=== PATIENT | female | born 1940 | race Caucasian/White ===

== ENCOUNTER 2021-09-16 16:50 | Inpatient (IN) ==
[2021-09-16] MEDS ORDERED: morphine 2 MG/ML VIAL IV ONE (17:39)
--- NOTE | 2021-09-16 17:54 | XRay Report ---
INDICATION: Pre surgery TECHNIQUE: AP supine chest x-ray COMPARISON: Previous chest x-ray dated 11/27/2020 FINDINGS: Lungs:Lungs are negative. No focal pulmonary parenchymal infiltrate or mass Heart, vascular:No significant cardiomegaly. Pulmonary vascularity is normal. No pulmonary edema or pulmonary congestion Mediastinum, ysabel:No mediastinal widening. No hilar mass Pleura:No pleural fluid. No pleural-based mass or calcification Skeletal:Healing or healed left-sided rib fractures. No acute rib fractures. Patient is status post midthoracic vertebral body augmentation IMPRESSION: Negative supine abdomen Interpreted and Authenticated by: Steven Torres 09/16/21
--- NOTE | 2021-09-16 17:55 | XRay Report ---
INDICATION: fall, hip pain TECHNIQUE: AP pelvis. AP and crosstable lateral left hip COMPARISON: Previous examination dated 06/04/2020 FINDINGS: Transcervical left femoral neck fracture. There is foreshortening and varus angulation deformity. Pelvis and right hip are negative. Sacrum is negative. IMPRESSION: Displaced and angulated left femoral neck fracture Interpreted and Authenticated by: Steven Torres 09/16/21
--- NOTE | 2021-09-16 17:55 | Emergency Department Note ---
HPI General Chief complaint: Trauma Stated complaint: Fall Time Seen by Provider: 09/16/21 17:07 Source: EMS Mode of arrival: EMS History of Present Illness HPI Narrative: Patient presents after mechanical trip and fall resulting in left hip pain difficulty bearing weight happened just prior to arrival. Pain rated 4/10 at rest 8/10 with any attempted movement. Did not hit head or lose consciousness. Denies any neck or back pain acutely. No treatment attempted prior to arrival patient denies current CP, sob, fever, chills, abdominal pain, n/v/d/c, focal acute weakness, loss/change of sensation, or any other complaints at this time. PMH/PSHx/Meds/Allergies/SH/FH as per nursing documentation and reviewed. A full 10 point review of systems reviewed and negative except as noted in HPI. Related Data Home Medications Medication Instructions Recorded Confirmed calcium carbonate-vitamin D3 400 tab PO QDAY tab 05/13/15 04/04/21 mg -133.3 unit tablet Previous Rx's Medication Instructions Recorded alendronate 70 mg tablet (Fosamax) 70 mg PO QWEEK #12 tab 11/21/17 hydrochlorothiazide 25 mg tablet 12.5 mg PO QDAY #45 tab 05/25/18 simvastatin 40 mg tablet 40 mg PO QPM #90 tab 05/25/18 cyclobenzaprine 5 mg tablet 5 mg PO BID PRN #10 tab 06/27/20 cyclobenzaprine 10 mg tablet 5 mg PO TID PRN #15 tab 11/27/20 docusate sodium 100 mg capsule 100 mg PO QDAY #20 cap 11/27/20 (Colace) hydrocodone 7.5 mg-acetaminophen 1 tab PO Q6H PRN #42 tab 12/01/20 325 mg tablet Allergies Allergy/AdvReac Type Severity Reaction Status Date / Time Amoxicillin [From Augmentin] AdvReac Unknown Diarrhea Verified 04/04/21 11:07 clavulanic acid AdvReac Unknown Diarrhea Verified 04/04/21 11:07 [From Augmentin] modafinil [From Provigil] AdvReac Unknown Dizziness Verified 04/04/21 11:07 Review of Systems ROS ROS Narrative: Per HPI PFSH Narrative Patient History Narrative: Narrative: Medical/Surgical/Family History All Active Problems (Updated 09/16/21 @ 17:55 by Nathaniel Rockwell DO) Closed fracture of neck of left femur (Acute) Acute pain of left hip (Acute) Urinary tract infection (Acute) Pain in thoracic spine (Acute) Idiopathic osteoporosis with pathological fracture (Acute) Age-related osteoporosis with current pathol fracture of vertebra (Acute) Compression fx, thoracic spine (Acute) Fracture of rib (Acute) Lumbar spondylosis with myelopathy (Chronic) Lumbar facet arthropathy (Chronic) Lumbar radiculopathy (Chronic) Chronic pain (Chronic) Degeneration of lumbar intervertebral disc (Chronic) Pain of both hip joints (Chronic) Hip pain (Chronic) Back pain (Chronic) Other intervertebral disc degeneration, lumbar region (Chronic) 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) Encounter for Health Maintenance Examination in Adult (Chronic) Eczema (Chronic) Epistaxis, recurrent (Chronic) Peripheral neuropathy (Chronic) Trochanteric bursitis of left hip (Chronic) Multiple sclerosis (Chronic) Hypertension (Chronic) Hyperlipidemia (Chronic) Hematuria (Chronic) Hearing loss, sensorineural (Chronic) Cervical spondylosis without myelopathy (Chronic) Medical History (Updated 09/16/21 @ 17:55 by Nathaniel Rockwell DO) Back pain Cerumen impaction Cervical spondylosis without myelopathy Chronic pain Degeneration of lumbar intervertebral disc Epistaxis Hearing loss, sensorineural Hematuria Hip pain Hyperlipidemia Hypertension Lumbar facet arthropathy Lumbar radiculopathy Lumbar spondylosis with myelopathy Multiple sclerosis Other intervertebral disc degeneration, lumbar region Pain of both hip joints Urinary tract infection Surgical History H/O dilation and curettage Family History Father Dementia Sister Breast cancer, Onset Age: 59 Other Cerebrovascular accident (CVA) Seizure Social History Smoking Status: Never smoker Alcohol Intake Frequency: does not drink Substance Use: does not use Exam Narrative Narrative: PHYSICIAL EXAM: Vitals reviewed GENERAL: The patient appears nourished and normally developed. Vital signs as documented. EYES: Head exam is unremarkable. No scleral icterus HEENT: Mucous membranes moist. Nares patent without copious rhinorrhea. LUNGS: Lungs are clear to auscultation, -r/r/w without any respiratory distress. CARDIAC: Rhythm is regular. No dysrhythmias or murmurs. ABDOMEN: Soft, non-tender, non-distended, no rebound/guarding, with no obvious masses EXTREMITIES: Pelvis stable to compression, + pain with logroll testing on the left left lower extremity shortened externally rotated distal sensation intact, dorsalis pedis posterior tibialis pulses equal intact bilaterally, otherwise no peripheral edema, with no obvious deformities. SKIN: Good color, with no significant rashes. No pallor. NEURO: No obvious neurological deficits, normal sensation and strength bilaterally. PSYCH: Mood and affect normal. Appropriate for age. Course Vital Signs Vital signs: Vital Signs Temperature 98.1 F 09/16/21 16:52 Pulse Rate 100 H 09/16/21 16:52 Pulse Oximetry (%) 91 09/16/21 16:52 Temperature 98.1 F 09/16/21 16:52 Pulse Rate 100 H 09/16/21 16:52 Pulse Oximetry (%) 91 09/16/21 16:52 [facility] MDM Narrative Medical decision making narrative: All results/imaging obtained reviewed and interpreted, results trended/compared with previous levels if available to evaluate for abnormality contributing to todays presentation, After reviewing patients comorbidities, severity of history of presenting illness, labs and imaging if obtained in conjunction with physical exam and course in emergency department, deemed to have potential for deterioration/progression of symptoms that could lead to multiple morbidities or mortality, decision made that patient requires further observation/evaluation/treatment and patient admitted to appropriate service, patient/family understand and agree with plan. Chart created with voice recognition software, errors may be present due to softwares interpretation Lab Data Result diagrams: 09/16/21 17:43 09/16/21 17:43 Discharge Plan Patient/Caregiver Discharge Instructions Pt seen by RAIL CAR REPAIRMAN/PA only: No Clinical Impression: Closed fracture of neck of left femur, Acute pain of left hip Patient Disposition: Xfer As Inpt ([facility]) Follow up with: Ismael Pardo MD [Primary Care Provider] - Prescriptions: No Action alendronate [Fosamax] 70 mg tablet 70 mg PO QWEEK Qty: 12 3RF Rx Instructions: administer upon arising for the day with plain water >=30 min. hydrochlorothiazide 25 mg tablet 12.5 mg PO QDAY Qty: 45 3RF simvastatin 40 mg tablet 40 mg PO QPM Qty: 90 3RF calcium carbonate-vitamin D3 400-133.3 mg-unit tablet PO QDAY 0RF hydrocodone-acetaminophen 7.5-325 mg tablet 1 tab PO Q6H PRN (Reason: pain) Qty: 42 0RF cyclobenzaprine 5 mg tablet 5 mg PO BID PRN (Reason: muscle spasm) Qty: 10 0RF cyclobenzaprine 10 mg tablet 5 mg PO TID PRN (Reason: muscle spasm) Qty: 15 0RF docusate sodium [Colace] 100 mg capsule 100 mg PO QDAY Qty: 20 0RF
[2021-09-16] MEDS ORDERED: ONDANSETRON 4 MG/2 ML VIAL IV PRN (17:56)
[2021-09-16 18:22] LABS: Basophils # (Auto) 0.03 K/mcL (0.00-0.30); Basophils % (Auto) 0.2 % (0.0-2.0); Eosinophils # (Auto) 0 K/mcL (0.00-0.70); Eosinophils % (Auto) 0 % (0.0-7.0); Hematocrit 41.7 % (34.1-44.9); Hemoglobin 13.9 g/dL (11.2-15.7); Mean Cell Volume 93.3 fL (80.0-100.0); Mean Corpuscular HGB Conc 33.3 g/dL (31.0-36.0); Monocytes # (Auto) 0.99 K/mcL (0.10-0.90); Monocytes % (Auto) 6.8 % (1.0-12.0); Platelet Count 269 K/mcL (140-440); RBC 4.47 M/mcL (3.59-5.38); Red Cell Distribution Width 12.1 % (11.5-14.5); WBC 14.5 K/mcL (4.5-11.0)
[2021-09-16 18:43] LABS: ALT/SGPT 17 U/L (<40); AST/SGOT 19 U/L (<32); Albumin 4.2 gm/dL (3.2-5.2); Albumin/Globulin Ratio 1.7 (1.0-2.3); Alkaline Phosphatase 48 U/L (39-117); Bilirubin,Total 0.3 mg/dL (0.1-1.0); Blood Urea Nitrogen 24 mg/dL (8-23); Calcium 9.1 mg/dL (8.6-10.4); Carbon Dioxide 24 mmol/L (22-30); Chloride 92 mmol/L (96-108); Globulin 2.5 gm/dL (2.2-3.7); Glomerular Filtration Rate 60; Glucose 148 mg/dL (70-105)
[2021-09-16] MEDS ORDERED: morphine 4 MG/ML VIAL IV ONE (19:13)
[2021-09-16] MEDS ORDERED: oxyCODONE/APAP 5/325MG TABLET PO PRN (20:51)
[2021-09-16] MEDS ORDERED: ACETAMINOPHEN 325 MG TABLET PO PRN (20:51)
[2021-09-16] MEDS ORDERED: ORTHO PREOP PAIN ORDER PER RX PO SCH (21:00)
[2021-09-16] MEDS ORDERED: DOCUSATE SODIUM 100 MG CAPSULE PO SCH (21:00)
[2021-09-16] MEDS: HYDROmorphone 1 MG/ML SYRINGE IV PRN (21:52)
[2021-09-16] MEDS: 0.9 % SODIUM CHLORIDE 10 ML SYRINGE IV SCH (21:52)
[2021-09-16] MEDS: DOCUSATE SODIUM 100 MG CAPSULE PO SCH (21:53)
[2021-09-16] MEDS: SENNOSIDES 1 TABLET PO SCH (21:53)
[2021-09-17] MEDS ORDERED: ceFAZolin 1 GM VIAL ONE (04:59)
[2021-09-17] MEDS: ACETAMINOPHEN 500 MG TABLET PO SCH ×2 (05:08→13:54)
[2021-09-17] MEDS: 0.9 % SODIUM CHLORIDE 10 ML SYRINGE IV SCH ×4 (05:08→22:04)
[2021-09-17] MEDS ORDERED: oxyCODONE 10 MG TAB.ER.12H PO SCH (06:00)
[2021-09-17] MEDS ORDERED: CELECOXIB 200 MG CAPSULE PO SCH (06:00)
[2021-09-17] MEDS ORDERED: ceFAZolin 2 GM in DEXTROSE 5% IN WATER 50 ML IV SCH ×2 (06:00→16:15)
[2021-09-17] MEDS ORDERED: PREGABALIN 75 MG CAPSULE PO SCH (06:00)
[2021-09-17] MEDS: DOCUSATE SODIUM 100 MG CAPSULE PO SCH ×2 (08:09→21:35)
--- NOTE | 2021-09-17 09:50 | Consultation ---
DATE OF CONSULTATION: 09/16/2021 HISTORY OF PRESENT ILLNESS: This is a 80-year-old woman who fell on her left hip,had immediate pain, swelling and deformity with a same level fall. She was seen in the Emergency Room and was appropriately diagnosed with a femoral neck fracture. She is confused and does not recall much of the events. Her power of managing attorney has been notified and consented for the surgery. We talked to the patient as well about the possibility of options for her. These included screw fixation and hemiarthroplasty. They have elected to go with my advice of the hemiarthroplasty given the location and her bone quality, and the risks and benefits, and she agrees to proceed. PAST MEDICAL HISTORY: The patient has had multiple other health problems to include pain in the thoracic spine, frequent urinary infection, idiopathic osteoporosis with rib fractures, degenerative arthritis of the lumbar spine, hypertension, hyperlipidemia, hematuria, cervical spondylosis. REVIEW OF SYSTEMS: She has no shortness of breath. MEDICATIONS: A muscle relaxant. Cyclobenzaprine 5 mg t.i.d. Docusate sodium. Hydrocodone 7.5 mg 1-2 tablets daily. Simvastatin 40 mg 1 p.o. at bedtime. ALLERGIES: AMOXICILLIN. CODE STATUS: No history was available. VITAL SIGNS: Her blood pressure today is 149/80, pulse 82, temperature 98.1, oxygen is saturating at 91% on room air. PHYSICAL EXAMINATION: GENERAL: 5 feet, 113 pounds with a BMI of 22. LUNGS: Clear to auscultation bilaterally. CV: Occasionally irregular beat with no murmurs. ABDOMEN: Soft, thin, nontender. LOWER EXTREMITIES: Right hip is flexed. The left hip is externally rotated, flexed and shortened. She has pain with any motion of the left leg and she is able to move her toes. Skin is intact. No open wounds. DIAGNOSTIC STUDIES: X-rays of the left hip demonstrate a femoral neck fracture, AP and lateral. This demonstrates a displaced femoral neck fracture with osteoporosis. PLAN: The treatment will be a cemented hemiarthroplasty. The patient and power of managing attorney have been consented. RBH:parris Job ID: [id number] Doc ID: [id number] Jerry Wiggins MD
[2021-09-17] MEDS ORDERED: SCOPOLAMINE 1 PATCH PATCH TOPICAL PRN (15:30)
[2021-09-17] MEDS ORDERED: IPRATROPIUM/ALBUTEROL 3 ML AMPUL.NEB NEB PRN ×2 (15:30→16:46)
[2021-09-17] MEDS ORDERED: BISACODYL 10 MG SUPP.RECT PR PRN (16:08)
[2021-09-17] MEDS ORDERED: TRANEXAMIC ACID 1,000 MG/10 ML VIAL IV ONE (16:08)
[2021-09-17] MEDS ORDERED: BENZOCAINE/MENTHOL 1 LOZENGE PO PRN (16:08)
[2021-09-17] MEDS ORDERED: ACETAMINOPHEN 325 MG TABLET PO PRN (16:08)
[2021-09-17] MEDS ORDERED: KETAMINE 50 MG/ML Syringe (ANEST) IV ONE (16:20)
[2021-09-17] MEDS ORDERED: ONDANSETRON 4 MG/2 ML VIAL ONE (16:20)
[2021-09-17] MEDS ORDERED: MAGNESIUM SULFATE 2 GM/50 ML BAG IV ONE (16:20)
[2021-09-17] MEDS ORDERED: PROPOFOL 200 MG/20 ML VIAL IV ONE (16:20)
[2021-09-17] MEDS ORDERED: TRANEXAMIC ACID 1,000 MG/10 ML VIAL ONE (16:20)
[2021-09-17] MEDS ORDERED: LIDOCAINE HCL/PF 100 MG/5 ML SYRINGE IV ONE (16:20)
[2021-09-17] MEDS ORDERED: diphenhydrAMINE 50 MG/ML VIAL IV PRN (16:46)
[2021-09-17] MEDS ORDERED: NALOXONE HCL 0.4 MG/ML VIAL IV PRN (16:46)
[2021-09-17] MEDS ORDERED: ONDANSETRON 4 MG/2 ML VIAL IV PRN (16:46)
[2021-09-17] MEDS ORDERED: fentaNYL 100 MCG/2 ML VIAL IV PRN (16:46)
[2021-09-17] MEDS ORDERED: MEPERIDINE 25 MG/ML VIAL IV PRN (16:46)
[2021-09-17] MEDS ORDERED: ACETAMINOPHEN 1,000 MG/100 ML BAG IV ONE (16:46)
[2021-09-17] MEDS ORDERED: LACTATED RINGERS 250 ML IV PRN (16:46)
[2021-09-17] MEDS ORDERED: PROMETHAZINE 25 MG/ML VIAL IV PRN (16:46)
[2021-09-17] MEDS ORDERED: LACTATED RINGERS 1,000 ML IV SCH (17:00)
--- NOTE | 2021-09-17 17:13 | Discharge Plan ---
Discharge Instructions - [facility] Patient Instructions Total Hip Protocol: Follow activity instructions as provided by Physical Therapy. Dressing Care: May shower in 2 days and Aquacel Ag - leave on for 5 days Discharge Plan Patient/Caregiver Discharge Instructions Activity: ambulate only with your walker and as per physical therapy Diet: Regular Diet Prescriptions: New hydrocodone-acetaminophen 5-325 mg Tablet 1 - 2 tab PO Q4H PRN (Reason: Pain) Qty: 30 0RF aspirin [Ecotrin Low Strength] 81 mg tablet,delayed release (DR/EC) 81 mg PO BID Qty: 60 0RF docusate sodium 100 mg capsule 100 mg PO BID Qty: 60 0RF No Action alendronate [Fosamax] 70 mg tablet 70 mg PO QWEEK Qty: 12 3RF Rx Instructions: administer upon arising for the day with plain water >=30 min. hydrochlorothiazide 25 mg tablet 12.5 mg PO QDAY Qty: 45 3RF simvastatin 40 mg tablet 40 mg PO QPM Qty: 90 3RF calcium carbonate-vitamin D3 400-133.3 mg-unit tablet PO QDAY 0RF hydrocodone-acetaminophen 7.5-325 mg tablet 1 tab PO Q6H PRN (Reason: pain) Qty: 42 0RF docusate sodium [Colace] 100 mg capsule 100 mg PO QDAY Qty: 20 0RF cyclobenzaprine 5 mg tablet 5 mg PO TID 0RF Other Ambulatory Orders: Physical Therapy DC - [facility] (Routine) Location: None Selected Ordered By: Win Pringle Toilet Riser Discharge Order (ONCE) Location: None Selected Ordered By: Win Pringle Walker (ONCE) Location: None Selected Ordered By: Win Pringle Follow Up Plan Follow up with: Ismael Pardo MD [Primary Care Provider] - Patient Disposition: Xfer SNF Prognosis: Fair Rehab Potential: Fair Overall status at discharge: patient is not back to baseline Discharge Orders: Discharge Order (Routine); Ordered 09/18/21 Ordered By: Win Pringle
--- NOTE | 2021-09-17 17:15 | Brief Operative Note ---
Brief Operative Note Date of procedure: 09/17/21 Pre-op diagnosis: left hip fx Post-op diagnosis: same Procedure: left hip cemented hemiarthroplasty Grafts/Implants: Yes Anesthesia: GETA Complications: none Surgeon: Jerry Wiggins Missile Pad Mechanic: Win Pringle Estimated blood loss (cc): 84 Specimens Removed/Pathology: none sent Condition: stable Disposition: PACU
--- NOTE | 2021-09-17 17:47 | XRay Report ---
INDICATION: Post-Op Total Hip TECHNIQUE: AP pelvis. AP and crosstable lateral left hip COMPARISON: Preoperative evaluation dated 09/16/2021 FINDINGS: Status post left hemiarthroplasty. There is postsurgical soft tissue and intra-articular gas. No acute pelvic or sacral fracture IMPRESSION: Left hip and hemiarthroplasty Interpreted and Authenticated by: Steven Torres 09/17/21
[2021-09-17] MEDS: LACTATED RINGERS 1,000 ML IV SCH (18:56)
[2021-09-17] MEDS: CYCLOBENZAPRINE 10 MG TABLET PO SCH (21:34)
[2021-09-17] MEDS: ASPIRIN 81 MG TAB.CHEW CHEWED SCH (21:34)
[2021-09-17] MEDS: SENNOSIDES 1 TABLET PO SCH (21:34)
[2021-09-17] MEDS: SIMVASTATIN 40 MG TABLET PO SCH (21:35)
[2021-09-17] MEDS: ceFAZolin 1 GM VIAL IV SCH (23:37)
[2021-09-18] MEDS: LACTATED RINGERS 1,000 ML IV SCH ×3 (04:32→23:29)
[2021-09-18] MEDS: 0.9 % SODIUM CHLORIDE 10 ML SYRINGE IV SCH ×6 (04:33→23:29)
--- NOTE | 2021-09-18 08:22 | EKG ---
[facility] Test Date: 2021-09-16 Pat Name: Pilar Ruano Department: ED Room: Gender: Female Director Medical: SB : 1940 Requested By: Nathaniel Rockwell Order Number: [id number] Reading MD: Matthew Trujillo Measurements Intervals [place] Rate: 88 P: 69 [place]: 151 QRS: -52 QRSD: 99 T: 49 QT: 395 QTc: 478 Interpretive Statements Sinus rhythm LAD, consider left anterior fascicular block Electronically Signed On 09-18-2021 8:22:11 PDT by Matthew Trujillo /store/M0/[id number]/[id number]
[2021-09-18] MEDS ORDERED: DOCUSATE SODIUM 100 MG CAPSULE PO SCH (09:00)
[2021-09-18] MEDS: ASPIRIN 81 MG TAB.CHEW CHEWED SCH ×2 (09:10→22:27)
[2021-09-18] MEDS: DOCUSATE SODIUM 100 MG CAPSULE PO SCH ×2 (09:10→22:28)
[2021-09-18] MEDS: HYDROCHLOROTHIAZIDE 25 MG TABLET PO SCH (09:11)
[2021-09-18] MEDS: CYCLOBENZAPRINE 10 MG TABLET PO SCH ×3 (09:11→22:27)
[2021-09-18] MEDS: ceFAZolin 1 GM VIAL IV SCH (09:22)
[2021-09-18] MEDS: HYDROCODONE/APAP 7.5/325MG TABLET PO PRN (18:32)
[2021-09-18] MEDS: HYDROmorphone 1 MG/ML SYRINGE IV PRN (22:26)
[2021-09-18] MEDS: SIMVASTATIN 40 MG TABLET PO SCH (22:28)
[2021-09-18] MEDS: SENNOSIDES 1 TABLET PO SCH (22:28)
[2021-09-19] MEDS: LACTATED RINGERS 1,000 ML IV SCH ×3 (01:19→17:20)
[2021-09-19] MEDS: HYDROCODONE/APAP 7.5/325MG TABLET PO PRN ×2 (03:25→15:07)
[2021-09-19] MEDS: 0.9 % SODIUM CHLORIDE 10 ML SYRINGE IV SCH ×6 (06:12→20:12)
--- NOTE | 2021-09-19 10:21 | Orthopedic Progress Note ---
SUBJECTIVE Subjective Patient information: Note initiated : 09/19/21 at 10:19 am Service Date, if different from initiated Date: [] Patient: Pilar Ruano 80 y/o F admitted on 09/16/21 for Fall. Chief Complaint: [hip fx] Principal diagnosis: left hip fx and dementia Constitutional Vitals: Vital Signs Temp Pulse Resp BP Pulse Ox 97.6 F 74 16 149/67 94 09/19/21 07:36 09/19/21 07:36 09/19/21 07:36 09/19/21 07:36 09/19/21 10:00 Period Temp Pulse Resp BP Sys/Ramírez Pulse Ox Last 24 Hr 97.2 F-98.9 F 70-90 16-18 121-153/50-93 91-95 Intake and Output 09/18/21 09/19/21 09/19/21 21:59 05:59 13:59 Intake Total 1000 1400 120 Output Total 300 600 Balance 700 800 120 Weight 118 lb Intake & Output: Intake & Output 09/18/21 09/19/21 09/19/21 21:59 05:59 13:59 Intake Total 1000 1400 120 Output Total 300 600 Balance 700 800 120 Weight 118 lb Intake: IV 1000 1000 Lactated Ringers 1,000 ml @ 100 1000 1000 mls/hr IV .Q10H [facility] Rx#: [id number] Oral 400 120 Output: Urine Catheter Amount 300 600 Other: Meal applesauce Breakfast Percent of Meal Consumed 100% 100% Feeding Ability Independent Urine Appearance Clear Uretheral ([place]) Clear Urine Color Dark Yellow Uretheral ([place]) Pale General appearance: disheveled, no acute distress and thin OBJ DATA Labs CBC & Chem 7: 09/18/21 05:33 09/16/21 17:43 Labs: Abnormal Lab Results 09/16/21 09/16/21 17:43 17:43 WBC 14.5 H Neut % (Auto) 84.0 H Lymph % (Auto) 9.0 L Lymph # (Auto) 1.30 L Angelina # (Auto) 0.99 H Absolute Neutrophils 12.18 H Sodium 132 L Chloride 92 L BUN 24 H Glucose 148 H Meds: Medications Acetaminophen (Acetaminophen 325 Mg Tablet) 650 mg PO Q6HP PRN; Protocol PRN Reason: Per Pain Protocol/Fever > 101 Acetaminophen (Acetaminophen 325 Mg Tablet) 650 mg PO Q6HP PRN; Protocol PRN Reason: Per Pain Protocol/Fever > 101 Hydrocodone Bitart/Acetaminophen (Hydrocodone/Apap 7.5/325mg Tablet) 1 tab PO Q6HP PRN PRN Reason: Pain Last Admin: 09/19/21 03:25 Dose: 1 tab Documented by: Alendronate Sodium (Alendronate Sodium 70 Mg Tablet) 70 mg PO QWEEK [facility] Aspirin (Aspirin 81 Mg Tab.Chew) 81 mg CHEWED BID [facility] Last Admin: 09/18/21 22:27 Dose: 81 mg Documented by: Bisacodyl (Bisacodyl 10 Mg Supp.Rect) 10 mg SD Q2-3DAYS PRN PRN Reason: Constipation Cyclobenzaprine HCl (Cyclobenzaprine 10 Mg Tablet) 5 mg PO TID [facility] Last Admin: 09/18/21 22:27 Dose: 5 mg Documented by: Docusate Sodium (Docusate Sodium 100 Mg Capsule) 100 mg PO BID [facility] Last Admin: 09/18/21 22:28 Dose: Not Given Documented by: Hydrochlorothiazide (Hydrochlorothiazide 25 Mg Tablet) 12.5 mg PO QDAY [facility] Last Admin: 09/18/21 09:11 Dose: 12.5 mg Documented by: Hydromorphone HCl (Hydromorphone 1 Mg/Ml Syringe) 0 mg IV Q2HP PRN; Protocol PRN Reason: Per Pain Protocol Last Admin: 09/18/21 22:26 Dose: 1 mg Documented by: Lactated Ringer's (Lactated Ringers) 1,000 mls @ 100 mls/hr IV .Q10H [facility] Last Admin: 09/19/21 01:19 Dose: 100 mls/hr Documented by: Ondansetron HCl (Ondansetron 4 Mg/2 Ml Vial) 4 mg IV Q6HP PRN PRN Reason: Nausea And Vomiting Last Admin: 09/16/21 21:52 Dose: 4 mg Documented by: Oxycodone/Acetaminophen (Oxycodone/Apap 5/325mg Tablet) 1 tab PO Q4HP PRN; Protocol PRN Reason: Per Pain Protocol Polyethylene Glycol (Polyethylene Glycol 3350 17 Gm Packet) 17 gm PO DAILYP PRN PRN Reason: Constipation Senna (Sennosides 1 Tablet) 2 tab PO [facility] Last Admin: 09/18/21 22:28 Dose: 2 tab Documented by: Simvastatin (Simvastatin 40 Mg Tablet) 40 mg PO QPM [facility] Last Admin: 09/18/21 22:28 Dose: 40 mg Documented by: Sodium Chloride (0.9 % Sodium Chloride 10 Ml Syringe) 10 ml IV Q8 [facility] Last Admin: 09/19/21 06:12 Dose: Not Given Documented by: Sodium Chloride (0.9 % Sodium Chloride 10 Ml Syringe) 10 ml IV Q8 [facility] Last Admin: 09/19/21 06:12 Dose: Not Given Documented by: Throat Lozenges (Benzocaine/Menthol 1 Lozenge) 1 lozenge PO PRN PRN PRN Reason: Sore Throat A/P Assessment and plan (1) Acute pain of left hip: Status: Acute (2) Idiopathic osteoporosis with pathological fracture: Assessment and plan: dc Plan: dc snf Status: Acute Comment: snf (3) Fracture of rib: Status: Acute (4) Chronic pain: Status: Chronic (5) Pain of both hip joints: Status: Chronic (6) Back pain: Status: Chronic Qualifiers: Back pain location: low back pain Chronicity: chronic Back pain laterality: right Sciatica presence: with sciatica Sciatica laterality: sciatica of right side Qualified Code(s): M54.41 - Lumbago with sciatica, right side; G89.29 - Other chronic pain (7) Balance problem due to vestibular dysfunction: Status: Chronic Qualifiers: Laterality: unspecified laterality Qualified Code(s): H83.2X9 - Labyrinthine dysfunction, unspecified ear Time Spent With Patient Time: Total time spent is greater than 50% in coordination of care (as documented) at patient's floor/unit and/or counseling patient:
[2021-09-19] MEDS: HYDROCHLOROTHIAZIDE 25 MG TABLET PO SCH (11:03)
[2021-09-19] MEDS: ASPIRIN 81 MG TAB.CHEW CHEWED SCH ×2 (11:03→20:12)
[2021-09-19] MEDS: DOCUSATE SODIUM 100 MG CAPSULE PO SCH ×2 (11:04→20:11)
[2021-09-19] MEDS: CYCLOBENZAPRINE 10 MG TABLET PO SCH ×3 (11:04→20:11)
[2021-09-19] MEDS: SENNOSIDES 1 TABLET PO SCH (20:12)
[2021-09-19] MEDS: SIMVASTATIN 40 MG TABLET PO SCH (20:12)
[2021-09-20] MEDS: LACTATED RINGERS 1,000 ML IV SCH ×3 (04:08→23:00)
[2021-09-20] MEDS: 0.9 % SODIUM CHLORIDE 10 ML SYRINGE IV SCH ×6 (04:09→22:00)
[2021-09-20] MEDS: DOCUSATE SODIUM 100 MG CAPSULE PO SCH ×2 (10:08→20:27)
[2021-09-20] MEDS: ASPIRIN 81 MG TAB.CHEW CHEWED SCH ×2 (10:08→20:27)
[2021-09-20] MEDS: CYCLOBENZAPRINE 10 MG TABLET PO SCH ×3 (10:08→20:27)
[2021-09-20] MEDS: HYDROCHLOROTHIAZIDE 25 MG TABLET PO SCH (10:10)
[2021-09-20] MEDS: HYDROCODONE/APAP 7.5/325MG TABLET PO PRN (10:17)
[2021-09-20] MEDS ORDERED: IPRATROPIUM/ALBUTEROL 3 ML AMPUL.NEB NEB PRN (12:00)
[2021-09-20] MEDS ORDERED: 0.9 % SODIUM CHLORIDE 1,000 ML IV SCH (12:00)
[2021-09-20] MEDS ORDERED: 0.9 % SODIUM CHLORIDE 1,000 ML IV ONE (12:05)
--- NOTE | 2021-09-20 12:31 | Internal Medicine Consult Note ---
HPI Data of Consult Consult date: 09/20/21 Primary Care Provider: Ismael Pardo Consult Narrative History of present illness: Pilar Ruano is a 80 year old female with a history of hypertension, dementia, osteoporosis, who suffered a fall and was found to have a left femoral neck fracture. The patient was admitted on 09/16/21 and taken for ORIF with left hip cemented hemiarthroplasty on 09/17/21. Per chart review the patient was stable until 09/20/21 when she was found to be hypoxic. A rapid response was called and hospital medicine was consulted per hospital protocol. When evaluated the patient she was tachycardic and hypotensive. She appeared confused, not the patient has dementia. Review of systems: unable to obtain due to dementia Physical exam Head: Atraumatic, normal inspection. Eyes: normal appearance, no scleral icterus. Neck: full ROM Respiratory: nasal canula oxygen Cardiovascular: regular tachycardia, S1, S2. GI/Abdominal: soft, nontender, no guarding. Extremities: left femur surgical incision covered with clean bandage Neurological: CN II-XII intact, intact motor, intact sensation. Psychiatric: impaired cognition Skin: warm, normal color cc:: CC: Jerry Wiggins [facility]SH All Active Problems (Updated 09/19/21 @ 10:21 by Jerry Wiggins MD) Closed fracture of neck of left femur (Acute) Acute pain of left hip (Acute) Urinary tract infection (Acute) Pain in thoracic spine (Acute) Idiopathic osteoporosis with pathological fracture (Acute) Age-related osteoporosis with current pathol fracture of vertebra (Acute) Compression fx, thoracic spine (Acute) Fracture of rib (Acute) Lumbar spondylosis with myelopathy (Chronic) Lumbar facet arthropathy (Chronic) Lumbar radiculopathy (Chronic) Chronic pain (Chronic) Degeneration of lumbar intervertebral disc (Chronic) Pain of both hip joints (Chronic) Hip pain (Chronic) Back pain (Chronic) Other intervertebral disc degeneration, lumbar region (Chronic) 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) Encounter for Health Maintenance Examination in Adult (Chronic) Eczema (Chronic) Epistaxis, recurrent (Chronic) Peripheral neuropathy (Chronic) Trochanteric bursitis of left hip (Chronic) Multiple sclerosis (Chronic) Hypertension (Chronic) Hyperlipidemia (Chronic) Hematuria (Chronic) Hearing loss, sensorineural (Chronic) Cervical spondylosis without myelopathy (Chronic) Medical History (Updated 09/19/21 @ 10:21 by Jerry Wiggins MD) Back pain Cerumen impaction Cervical spondylosis without myelopathy Chronic pain Degeneration of lumbar intervertebral disc Epistaxis Hearing loss, sensorineural Hematuria Hip pain Hyperlipidemia Hypertension Lumbar facet arthropathy Lumbar radiculopathy Lumbar spondylosis with myelopathy Multiple sclerosis Other intervertebral disc degeneration, lumbar region Pain of both hip joints Urinary tract infection Surgical History H/O dilation and curettage Family History Father Dementia Sister Breast cancer, Onset Age: 59 Other Cerebrovascular accident (CVA) Seizure Social History household members: alone marital status: education level: high school occupational status: retired alcohol intake frequency: does not drink substance use type: does not use MEDS/ALLERGIES Home Medications and Allergies Home Medications Medication Instructions Recorded Confirmed Type calcium carbonate-vitamin D3 400 tab PO QDAY tab 05/13/15 04/04/21 History mg -133.3 unit tablet alendronate 70 mg tablet (Fosamax) 70 mg PO QWEEK #12 tab 11/21/17 09/17/21 Rx hydrochlorothiazide 25 mg tablet 12.5 mg PO QDAY #45 tab 05/25/18 09/17/21 Rx simvastatin 40 mg tablet 40 mg PO QPM #90 tab 05/25/18 09/17/21 Rx docusate sodium 100 mg capsule 100 mg PO QDAY #20 cap 11/27/20 09/17/21 Rx (Colace) hydrocodone 7.5 mg-acetaminophen 1 tab PO Q6H PRN #42 tab 12/01/20 09/17/21 Rx 325 mg tablet aspirin 81 mg tablet,delayed 81 mg PO BID #60 tab 09/17/21 Rx release (Ecotrin Low Strength) cyclobenzaprine 5 mg tablet 5 mg PO TID 09/17/21 09/17/21 History docusate sodium 100 mg capsule 100 mg PO BID #60 cap 09/17/21 Rx hydrocodone 5 mg-acetaminophen 325 1 - 2 tab PO Q4H PRN #30 tab 09/17/21 Rx mg tablet Allergies Allergy/AdvReac Type Severity Reaction Status Date / Time Amoxicillin [From Augmentin] AdvReac Unknown Diarrhea Verified 04/04/21 11:07 clavulanic acid AdvReac Unknown Diarrhea Verified 04/04/21 11:07 [From Augmentin] modafinil [From Provigil] AdvReac Unknown Dizziness Verified 04/04/21 11:07 EXAM Constitutional Vitals: Temp Pulse Resp BP Pulse Ox 98.0 F 69 16 183/65 92 09/20/21 08:00 09/20/21 08:00 09/20/21 08:00 09/20/21 08:00 09/20/21 08:00 DATA Data Completed and Pending Labs: Labs from last 24 hours 09/20/21 09/20/21 12:18 12:18 WBC Pending RBC Pending Hgb Pending Hct Pending MCV Pending MCH Pending MCHC Pending RDW Pending Plt Count Pending MPV Pending Neut % (Auto) Pending Sodium Pending Potassium Pending Chloride Pending Carbon Dioxide Pending Anion Gap Pending BUN Pending Creatinine Pending GFR Calculation Pending Glucose Pending Calcium Pending Total Bilirubin Pending AST Pending ALT Pending Alkaline Phosphatase Pending Total Protein Pending Albumin Pending Globulin Pending Albumin/Globulin Ratio Pending Hold Red Top Pending A/P Narrative A/P Narrative: Assessment: 80 year old female with a history of hypertension, dementia, osteoporosis, who was admitted for a left femur fracture after a fall, she had an ORIF on 09/17/21. A rapid response was called on 09/20/21 when the patient was found to be hypoxic. Hospital medicine was consulted for the rapid response. #Acute hypoxic respiratory failure #Left femur fracture s/p ORIF 09/17/21 #Essential hypertension #Osteoporosis #Dementia Plan -Transfer to PCU. -CTA chest, high PE pretest probability. -IV fluid bolus. -Oxygen supplementation. -CBC and inpatient panel. -Hold Hydrochlorothiazide. -Ofirmev Q8 hrs. -Discontinue opioids for now. -Delirium bundle. -NPO for now. -DVT ppx: on ASA BID per ortho -Code status: Full code at admission. Unable to contact Catrina ELIAS, to discuss code status. Left a message. Time Spent With Patient Time: Total time spent is greater than 50% in coordination of care (as documented) at patient's floor/unit and/or counseling patient:
[2021-09-20] MEDS ORDERED: IOPAMIDOL 100 ML BOTTLE IV ONE (12:39)
[2021-09-20 12:50] LABS: Basophils # (Auto) 0.04 K/mcL (0.00-0.30); Basophils % (Auto) 0.4 % (0.0-2.0); Eosinophils # (Auto) 0.14 K/mcL (0.00-0.70); Eosinophils % (Auto) 1.3 % (0.0-7.0); Hematocrit 35.8 % (34.1-44.9); Hemoglobin 12.2 g/dL (11.2-15.7); Lymphocytes # (Auto) 1.71 K/mcL (1.50-4.80); Lymphocytes % (Auto) 15.3 % (15.5-49.0); Mean Cell Volume 91.1 fL (80.0-100.0); Mean Corpuscular HGB Conc 34.1 g/dL (31.0-36.0); Mean Platelet Volume 9.4 fL (7.4-10.4); Monocytes # (Auto) 1.31 K/mcL (0.10-0.90); Monocytes % (Auto) 11.7 % (1.0-12.0); Neutrophils % (Auto) 71.3 % (38.0-78.0); Platelet Count 216 K/mcL (140-440); RBC 3.93 M/mcL (3.59-5.38); Red Cell Distribution Width 11.9 % (11.5-14.5); WBC 11.2 K/mcL (4.5-11.0)
--- NOTE | 2021-09-20 13:08 | Cat Scan Report ---
INDICATION: PE evaluation COMPARISON: Previous chest CT scan dated 11/27/2020. Previous chest x-ray dated 09/16/2021 TECHNIQUE: Axial images obtained through the chest. 80ml Isovue 370 injected intravenously, and scanning was performed during pulmonary arterial phase. Sagittally and coronally reformatted images were obtained. MIP reformatted images. FINDINGS: Lungs:No focal pulmonary parenchymal density. No calcified or noncalcified nodule Mediastinum, vascular:Main pulmonary artery, right pulmonary artery, left pulmonary artery are negative. No intraluminal filling defects. No lobar, segmental, or subsegmental emboli. Thoracic aorta is negative. No aneurysmal dilatation. Main pulmonary artery is not enlarged No pathologic mediastinal or hilar adenopathy Heart:No cardiomegaly. No pericardial effusion. No significant reflux of contrast material into the inferior vena cava or hepatic veins. No evidence for right heart strain Pleura:Very small left effusion Axilla, supraclavicular regions, chest wall:No pathologic axillary or supraclavicular adenopathy. Musculoskeletal:There are chronic healed left rib fractures. Previous vertebroplasty or kyphoplasty at T7. There is a mild T10 compression deformity, unchanged since 11/27/2020 Upper Abdomen:Negative IMPRESSION: 1. Negative pulmonary CTA 2. Very small left pleural effusion 3. Multiple healed left rib fractures 4. Previous T7 kyphoplasty or vertebroplasty. Mild superior endplate compression at T10, chronic The exam was performed using radiation dose optimization techniques including, but not limited to, automated exposure control, adjustment of the mA and/or kV according to patient size and use of iterative reconstruction technique. Interpreted and Authenticated by: Steven Torres 09/20/21
[2021-09-20 13:15] LABS: ALT/SGPT 12 U/L (<40); AST/SGOT 31 U/L (<32); Albumin 3.3 gm/dL (3.2-5.2); Albumin/Globulin Ratio 1.2 (1.0-2.3); Alkaline Phosphatase 50 U/L (39-117); Bilirubin,Total 0.3 mg/dL (0.1-1.0); Blood Urea Nitrogen 11 mg/dL (8-23); Calcium 8.7 mg/dL (8.6-10.4); Carbon Dioxide 24 mmol/L (22-30); Chloride 97 mmol/L (96-108); Globulin 2.8 gm/dL (2.2-3.7); Glomerular Filtration Rate 92; Glucose 128 mg/dL (70-105)
--- NOTE | 2021-09-20 13:48 | Internal Med Progress Note ---
SUBJECTIVE Subjective Patient information: Note initiated : 09/20/21 at 1:43 pm Service Date, if different from initiated Date: [] Patient: Pilar Ruano a 80 y/o F admitted on 09/16/21 for Fall. Chief Complaint: [] Principal diagnosis: left hip fx and dementia Interval history: History of present illness: Pilar Ruano is a 80 year old female with a history of hypertension, dementia, osteoporosis, who suffered a fall and was found to have a left femoral neck fracture. The patient was admitted on 09/16/21 and taken for ORIF with left hip cemented hemiarthroplasty on 09/17/21. Per chart review the patient was stable until 09/20/21 when she was found to be hypoxic. A rapid response was called and hospital medicine was consulted per hospital protocol. When evaluated the patient she was tachycardic and hypotensive. She appeared confused, not the patient has dementia. 09/21 Review of systems: unable to obtain due to dementia Constitutional Vitals: Vital Signs Temp Pulse Resp BP Pulse Ox 98.0 F 91 H 16 126/68 95 09/20/21 08:00 09/20/21 12:47 09/20/21 08:00 09/20/21 12:47 09/20/21 12:47 Period Temp Pulse Resp BP Sys/Ramírez Pulse Ox Last 24 Hr 97.3 F-98.8 F 69-91 16-16 126-183/65-78 91-96 Intake and Output 09/19/21 09/20/21 09/20/21 21:59 05:59 13:59 Intake Total 100 200 Output Total 800 550 Balance -700 -350 Weight 53.609 kg Intake & Output: Intake & Output 09/19/21 09/20/21 09/20/21 21:59 05:59 13:59 Intake Total 100 200 Output Total 800 550 Balance -700 -350 Weight 53.609 kg Intake: Oral 100 200 Output: Urine Catheter Amount 550 Void Amount 800 Other: Meal Dinner Breakfast Percent of Meal Consumed 75% 100% Feeding Ability Assist with Tray Set Up Urine Appearance Clear Uretheral ([place]) Clear Clear Urine Color Dark Yellow Dark Yellow Uretheral ([place]) Bright Yellow Bright Yellow Urine Odor Normal Exam: General: Alert, Awake, No acute Distress Eyes/N/T: EOMI, Head/Neck: neck supple, CV: RRR, No murmurs, Pulm: Clear b/l, no wheezing/rhonchi/rales Abd: soft, nontender, +BS x4 Ext: no clubbing/cyanosis/edema. left femur surgical incision covered with clean bandage Neuro: Alert, no focal deficits, moves all extremities, Psychiatric: impaired cognition Skin: warm/dry OBJ DATA Labs CBC & Chem 7: 09/20/21 12:18 09/20/21 12:18 Labs: Abnormal Lab Results 09/20/21 09/20/21 12:18 12:18 WBC 11.2 H Lymph % (Auto) 15.3 L [place] # (Auto) 1.31 H Creatinine 0.5 L Glucose 128 H Meds: Medications Hydrocodone Bitart/Acetaminophen (Hydrocodone/Apap 7.5/325mg Tablet) 1 tab PO Q6HP PRN PRN Reason: Pain Last Admin: 09/20/21 10:17 Dose: 1 tab Documented by: Albuterol/Ipratropium (Ipratropium/Albuterol 3 Ml Ampul.Neb) 3 ml NEB ONCE PRN PRN Reason: Shortness Of Breath Alendronate Sodium (Alendronate Sodium 70 Mg Tablet) 70 mg PO QWEEK [facility] Aspirin (Aspirin 81 Mg Tab.Chew) 81 mg CHEWED BID [facility] Last Admin: 09/20/21 10:08 Dose: 81 mg Documented by: Bisacodyl (Bisacodyl 10 Mg Supp.Rect) 10 mg [place] Q2-3DAYS PRN PRN Reason: Constipation Cyclobenzaprine HCl (Cyclobenzaprine 10 Mg Tablet) 5 mg PO TID [facility] Last Admin: 09/20/21 10:08 Dose: 5 mg Documented by: Docusate Sodium (Docusate Sodium 100 Mg Capsule) 100 mg PO BID [facility] Last Admin: 09/20/21 10:08 Dose: 100 mg Documented by: Lactated Ringer's (Lactated Ringers) 1,000 mls @ 100 mls/hr IV .Q10H [facility] Last Admin: 09/20/21 04:08 Dose: Not Given Documented by: Sodium Chloride (Sodium Chloride 0.9%) 1,000 mls @ 0 mls/hr IV .Q0M [facility] Acetaminophen (Ofirmev) 1,000 mg in 100 mls @ 200 mls/hr IV Q8H [facility]; Protocol Ondansetron HCl (Ondansetron 4 Mg/2 Ml Vial) 4 mg IV Q6HP PRN PRN Reason: Nausea And Vomiting Last Admin: 09/16/21 21:52 Dose: 4 mg Documented by: Polyethylene Glycol (Polyethylene Glycol 3350 17 Gm Packet) 17 gm PO DAILYP PRN PRN Reason: Constipation Senna (Sennosides 1 Tablet) 2 tab PO HS [facility] Last Admin: 09/19/21 20:12 Dose: 2 tab Documented by: Simvastatin (Simvastatin 40 Mg Tablet) 40 mg PO QPM [facility] Last Admin: 09/19/21 20:12 Dose: 40 mg Documented by: Sodium Chloride (0.9 % Sodium Chloride 10 Ml Syringe) 10 ml IV Q8 [facility] Last Admin: 09/20/21 04:09 Dose: Not Given Documented by: Sodium Chloride (0.9 % Sodium Chloride 10 Ml Syringe) 10 ml IV Q8 [facility] Last Admin: 09/20/21 04:09 Dose: Not Given Documented by: Throat Lozenges (Benzocaine/Menthol 1 Lozenge) 1 lozenge PO PRN PRN PRN Reason: Sore Throat A/P Narrative A/P Narrative: A: #Acute hypoxic respiratory failure: -now resolved -CTA chest negative #Left femur fracture: s/p ORIF (09/17) #HTN: #Osteoporosis: #Dementia: Plan -IS -prn Oxygen -CBC and inpatient panel -Hold Hydrochlorothiazide -Ofirmev Q8 hrs, Discontinue opioids for now -Delirium bundle -DVT ppx: on ASA BID per ortho Time Spent With Patient Time: Total time spent is greater than 50% in coordination of care (as documented) at patient's floor/unit and/or counseling patient:
[2021-09-20] MEDS: ACETAMINOPHEN 1,000 MG/100 ML BAG IV SCH ×2 (14:32→21:54)
[2021-09-20] MEDS: SENNOSIDES 1 TABLET PO SCH (20:27)
[2021-09-20] MEDS: SIMVASTATIN 40 MG TABLET PO SCH (20:27)
[2021-09-21] MEDS: HYDROCODONE/APAP 7.5/325MG TABLET PO PRN (01:00)
[2021-09-21] MEDS: ACETAMINOPHEN 1,000 MG/100 ML BAG IV SCH ×3 (05:50→21:41)
[2021-09-21] MEDS: 0.9 % SODIUM CHLORIDE 10 ML SYRINGE IV SCH ×6 (05:53→21:45)
[2021-09-21 06:52] LABS: Basophils # (Auto) 0.05 K/mcL (0.00-0.30); Basophils % (Auto) 0.6 % (0.0-2.0); Eosinophils # (Auto) 0.25 K/mcL (0.00-0.70); Eosinophils % (Auto) 2.9 % (0.0-7.0); Hematocrit 35.3 % (34.1-44.9); Hemoglobin 11.5 g/dL (11.2-15.7); Lymphocytes # (Auto) 2.03 K/mcL (1.50-4.80); Lymphocytes % (Auto) 23.7 % (15.5-49.0); Mean Cell Volume 94.4 fL (80.0-100.0); Mean Corpuscular HGB Conc 32.6 g/dL (31.0-36.0); Mean Platelet Volume 9.2 fL (7.4-10.4); Monocytes # (Auto) 0.92 K/mcL (0.10-0.90); Monocytes % (Auto) 10.8 % (1.0-12.0); Platelet Count 188 K/mcL (140-440); RBC 3.74 M/mcL (3.59-5.38); Red Cell Distribution Width 12.1 % (11.5-14.5); WBC 8.6 K/mcL (4.5-11.0)
[2021-09-21 07:33] LABS: ALT/SGPT 9 U/L (<40); AST/SGOT 22 U/L (<32); Albumin 2.8 gm/dL (3.2-5.2); Alkaline Phosphatase 46 U/L (39-117); Bilirubin,Direct < 0.2 mg/dL (0-0.3); Bilirubin,Total 0.2 mg/dL (0.1-1.0); Blood Urea Nitrogen 10 mg/dL (8-23); Calcium 8.5 mg/dL (8.6-10.4); Carbon Dioxide 26 mmol/L (22-30); Chloride 101 mmol/L (96-108); Globulin 2.7 gm/dL (2.2-3.7); Glomerular Filtration Rate 92; Glucose 100 mg/dL (70-105); Lactate Dehydrogenase 290 U/L (135-225); Phosphorous 3.9 mg/dL (2.5-4.5); Triglycerides 112 mg/dL (<150); Uric Acid 2.9 mg/dL (2.5-8.0)
--- NOTE | 2021-09-21 07:39 | Internal Med Progress Note ---
SUBJECTIVE Subjective Patient information: Note initiated : 09/21/21 at 7:30 am Service Date, if different from initiated Date: [] Patient: Pilar Ruano 80 y/o F admitted on 09/16/21 for Fall. Chief Complaint: [] Principal diagnosis: left hip fx and dementia Interval history: History of present illness: Pilar Ruano is a 80 year old female with a history of hypertension, dementia, osteoporosis, who suffered a fall and was found to have a left femoral neck fracture. The patient was admitted on 09/16/21 and taken for ORIF with left hip cemented hemiarthroplasty on 09/17/21. Per chart review the patient was stable until 09/20/21 when she was found to be hypoxic. A rapid response was called and hospital medicine was consulted per hospital protocol. When evaluated the patient she was tachycardic and hypotensive. She appeared confused, not the patient has dementia. 09/21 Seen this morning with close friend in the room. Is a close friend she does have some memory issues and slow to answer at times which is been progressing over the past months. She does have a history of dementia. She is on room air with good blood pressure heart rate this morning however she seemed to have a new neuro deficit on the right visual field. Patient does recall if she has had any vision problems in the past. She does have a longstanding history of multiple sclerosis. Review of Systems: denies headache/fever/chills/nausea/vomiting/chest or abdominal pain/cough/dyspnea/diarrhea. Otherwise see above. Constitutional Vitals: Vital Signs Temp Pulse Resp BP Pulse Ox 98.7 F 64 18 172/79 99 09/21/21 04:01 09/21/21 07:12 09/20/21 22:21 09/21/21 06:02 09/21/21 06:02 Period Temp Pulse Resp BP Sys/Ramírez Pulse Ox Last 24 Hr 97.0 F-98.7 F 64-115 16-24 123-183/55-130 85-99 Intake and Output 09/20/21 09/21/21 09/21/21 21:59 05:59 13:59 Intake Total 1415 100 100 Output Total 1300 750 Balance 115 -650 100 Weight 53.24 kg Intake & Output: Intake & Output 09/20/21 09/21/21 09/21/21 21:59 05:59 13:59 Intake Total 1415 100 100 Output Total 1300 750 Balance 115 -650 100 Weight 53.24 kg Intake: IV 100 100 100 Oral 1315 Output: Urine Catheter Amount 1300 750 Other: Meal Dinner Percent of Meal Consumed 50% Feeding Ability Assist with Tray Set Up Urine Appearance Clear Clear Urine Color Bright Yellow Light Melissa Urine Odor Normal Exam: General: Alert, Awake, No acute Distress Eyes/N/T: EOMI, but right visual field deficit Head/Neck: neck supple, CV: RRR, No murmurs, Pulm: Clear b/l, no wheezing/rhonchi/rales Abd: soft, nontender, +BS x4 Ext: no clubbing/cyanosis/edema. left femur surgical incision covered with clean bandage Neuro: Alert, right visual field deficit, moves all extremities, Psychiatric: impaired cognition Skin: warm/dry OBJ DATA Labs CBC & Chem 7: 09/21/21 05:58 09/21/21 05:58 Labs: Abnormal Lab Results 09/21/21 09/20/21 09/20/21 05:58 12:18 12:18 WBC 11.2 H Lymph % (Auto) 15.3 L [place] # (Auto) 0.92 H 1.31 H Creatinine 0.5 L Glucose 128 H Meds: Medications Hydrocodone Bitart/Acetaminophen (Hydrocodone/Apap 7.5/325mg Tablet) 1 tab PO Q6HP PRN PRN Reason: Pain Last Admin: 09/21/21 01:00 Dose: 1 tab Documented by: Albuterol/Ipratropium (Ipratropium/Albuterol 3 Ml Ampul.Neb) 3 ml NEB ONCE PRN PRN Reason: Shortness Of Breath Last Admin: 09/20/21 21:42 Dose: 3 ml Documented by: Alendronate Sodium (Alendronate Sodium 70 Mg Tablet) 70 mg PO QWEEK [facility] Aspirin (Aspirin 81 Mg Tab.Chew) 81 mg CHEWED BID [facility] Last Admin: 09/20/21 20:27 Dose: 81 mg Documented by: Bisacodyl (Bisacodyl 10 Mg Supp.Rect) 10 mg [place] Q2-3DAYS PRN PRN Reason: Constipation Cyclobenzaprine HCl (Cyclobenzaprine 10 Mg Tablet) 5 mg PO TID [facility] Last Admin: 09/20/21 20:27 Dose: 5 mg Documented by: Docusate Sodium (Docusate Sodium 100 Mg Capsule) 100 mg PO BID [facility] Last Admin: 09/20/21 20:27 Dose: 100 mg Documented by: Lactated Ringer's (Lactated Ringers) 1,000 mls @ 100 mls/hr IV .Q10H [facility] Last Admin: 09/20/21 23:00 Dose: Not Given Documented by: Sodium Chloride (Sodium Chloride 0.9%) 1,000 mls @ 0 mls/hr IV .Q0M [facility] Acetaminophen (Ofirmev) 1,000 mg in 100 mls @ 200 mls/hr IV Q8H [facility]; Protocol Last Infusion: 09/21/21 06:39 Dose: Infused Documented by: Ondansetron HCl (Ondansetron 4 Mg/2 Ml Vial) 4 mg IV Q6HP PRN PRN Reason: Nausea And Vomiting Last Admin: 09/16/21 21:52 Dose: 4 mg Documented by: Polyethylene Glycol (Polyethylene Glycol 3350 17 Gm Packet) 17 gm PO DAILYP PRN PRN Reason: Constipation Senna (Sennosides 1 Tablet) 2 tab PO HS [facility] Last Admin: 09/20/21 20:27 Dose: 2 tab Documented by: Simvastatin (Simvastatin 40 Mg Tablet) 40 mg PO QPM [facility] Last Admin: 09/20/21 20:27 Dose: 40 mg Documented by: Sodium Chloride (0.9 % Sodium Chloride 10 Ml Syringe) 10 ml IV Q8 [facility] Last Admin: 09/21/21 05:53 Dose: Not Given Documented by: Sodium Chloride (0.9 % Sodium Chloride 10 Ml Syringe) 10 ml IV Q8 [facility] Last Admin: 09/21/21 05:54 Dose: Not Given Documented by: Throat Lozenges (Benzocaine/Menthol 1 Lozenge) 1 lozenge PO PRN PRN PRN Reason: Sore Throat A/P Narrative A/P Narrative: A: #Stroke like symptoms (right visual field deficit) #Acute hypoxic respiratory failure: also had mild hypoxia several days before rapid response, suspect narcotics +/- chronic -CTA chest negative -on room air #hypotension & Tachycardia: possibly medication related -quickly resolved #Left femur fracture: s/p ORIF (09/17) #HTN: has been elevated #Osteoporosis: #Dementia: #h/o MS: Plan -MRI brain -permissive HTN if found to have CVA -IS -prn Oxygen -Hold Hydrochlorothiazide -Ofirmev Q8 hrs, Discontinue opioids for now, d/c flexeril for now -Delirium bundle -DVT ppx: on ASA BID per ortho Time Spent With Patient Time: Total time spent is greater than 50% in coordination of care (as documented) at patient's floor/unit and/or counseling patient: Total time spent with greater than 50% in coordination of care (as documented) at patient's floor/unit and/or counseling patient:: 35 - 50 minutes
[2021-09-21] MEDS: ASPIRIN 81 MG TAB.CHEW CHEWED SCH (08:28)
[2021-09-21] MEDS: DOCUSATE SODIUM 100 MG CAPSULE PO SCH ×2 (08:28→20:15)
[2021-09-21] MEDS: POLYETHYLENE GLYCOL 3350 17 GM PACKET PO PRN (08:28)
--- NOTE | 2021-09-21 08:57 | Cat Scan Report ---
INDICATION: concern for CVA COMPARISON: None. TECHNIQUE: Axial noncontrast-enhanced images through the brain. Sagittally and coronally reformatted images. FINDINGS: Cerebral hemispheres:Negative. No intra-axial abnormality. No intra-axial hematoma. No localized mass effect. There is cerebral atrophy with enlarged superficial subarachnoid spaces and ventricular megaly. There is white matter abnormality consistent with small vessel ischemic change. No acute intra-axial abnormality. Brainstem and cerebellum:No intra-axial abnormality Extra-axial:No acute hemorrhage. No subdural or epidural hematoma. No subarachnoid hemorrhage. Basilar cisterns are normal. CSF density abnormality in the anterior right middle cranial fossa is most consistent with a benign incidental arachnoid cyst. Calvarial:No calvarial fracture. No lytic lesion Temporal bones are negative. No destructive lesions Soft tissue, orbits, sinuses:Orbits and visualized facial soft tissues and paranasal sinuses are negative IMPRESSION: 1. Cerebral atrophy and white matter abnormality consistent with small vessel ischemic change 2. No acute intracranial hemorrhage. No acute abnormality The exam was performed using radiation dose optimization techniques including, but not limited to, automated exposure control, adjustment of the mA and/or kV according to patient size and use of iterative reconstruction technique. Interpreted and Authenticated by: Steven Torres 09/21/21
--- NOTE | 2021-09-21 11:53 | Magnetic Resonance Report ---
INDICATION: right visual field deficit TECHNIQUE: Sagittal T1-weighted images. Axial FLAIR images. Axial diffusion and ADC images. COMPARISON: Previous CT scan dated 09/21/2021 FINDINGS: There is restricted diffusion in the medial and inferior left occipital lobe. This is predominantly in the calcarine cortex and perisulcal left occipital lobe. There is no significant T2-weighted abnormality. Appearance is consistent with hyperacute left occipital infarction. No other cerebral abnormality. There is extensive white matter abnormality consistent with small vessel ischemic change. No other focal lesion. Brainstem and cerebellum are negative. Subdental note is made of a benign arachnoid cyst in the anterior right middle cranial fossa IMPRESSION: 1. Restricted diffusion in the left occipital lobe. This involves the calcarine cortex and perisulcal left occipital lobe. 2. No T2-weighted abnormality. Appearance is consistent with hyperacute infarction Interpreted and Authenticated by: Steven Torres 09/21/21
[2021-09-21] MEDS ORDERED: LABETALOL 5 MG/ML ML IV PRN (11:57)
[2021-09-21 12:26] LABS: HDL Cholesterol 37 mg/dL (>40); LDL Cholesterol,Calculated 50 mg/dL (<100); Non-HDL Cholesterol 72 mg/dL (<130); Triglycerides 111 mg/dL (<150)
--- NOTE | 2021-09-21 13:40 | EKG ---
[facility] Test Date: 2021-09-20 Pat Name: Pilar Ruano Department: 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
[2021-09-21] MEDS: CLOPIDOGREL 75 MG TABLET PO SCH (14:40)
[2021-09-21] MEDS: SENNOSIDES 1 TABLET PO SCH (20:15)
[2021-09-21] MEDS: SIMVASTATIN 40 MG TABLET PO SCH (20:18)
[2021-09-22] MEDS: ACETAMINOPHEN 1,000 MG/100 ML BAG IV SCH ×3 (05:24→21:17)
[2021-09-22] MEDS: 0.9 % SODIUM CHLORIDE 10 ML SYRINGE IV SCH ×6 (05:35→21:49)
--- NOTE | 2021-09-22 07:39 | Internal Med Progress Note ---
SUBJECTIVE Subjective Patient information: Note initiated : 09/22/21 at 7:37 am Service Date, if different from initiated Date: [] Patient: Pilar Ruano 80 y/o F admitted on 09/16/21 for Fall. Chief Complaint: [] Principal diagnosis: left hip fx and dementia Interval history: History of present illness: Pilar Ruano is a 80 year old female with a history of hypertension, dementia, osteoporosis, who suffered a fall and was found to have a left femoral neck fracture. The patient was admitted on 09/16/21 and taken for ORIF with left hip cemented hemiarthroplasty on 09/17/21. Per chart review the patient was stable until 09/20/21 when she was found to be hypoxic. A rapid response was called and hospital medicine was consulted per hospital protocol. When evaluated the patient she was tachycardic and hypotensive. She appeared confused, not the patient has dementia. 09/21 Seen this morning with close friend in the room. Is a close friend she does have some memory issues and slow to answer at times which is been progressing over the past months. She does have a history of dementia. She is on room air with good blood pressure heart rate this morning however she seemed to have a new neuro deficit on the right visual field. Patient does recall if she has had any vision problems in the past. She does have a longstanding history of multiple sclerosis. 09/22 No real change in the right visual field deficits. Permissive hypertension. Patient will need rehab as well. On dual antiplatelets and statin medication. Echo pending Review of Systems: denies headache/fever/chills/nausea/vomiting/chest or abdominal pain/c ough/dyspnea/diarrhea. Otherwise see above. Constitutional Vitals: Vital Signs Temp Pulse Resp BP Pulse Ox 97.0 F 73 20 216/97 93 09/22/21 04:00 09/22/21 02:01 09/22/21 06:01 09/22/21 06:01 09/22/21 06:01 Period Temp Pulse Resp BP Sys/Ramírez Pulse Ox Last 24 Hr 97.0 F-97.2 F 64-88 17-20 152-216/75-108 89-98 Intake and Output 09/21/21 09/22/21 09/22/21 21:59 05:59 13:59 Intake Total 100 100 100 Output Total 400 1150 Balance -300 -1050 100 Weight 53.184 kg Intake & Output: Intake & Output 09/21/21 09/22/21 09/22/21 21:59 05:59 13:59 Intake Total 100 100 100 Output Total 400 1150 Balance -300 -1050 100 Weight 53.184 kg Intake: IV 100 100 100 Output: Urine Catheter Amount 400 1150 Other: Urine Appearance Cloudy Urine Color Straw Exam: General: Alert, Awake, No acute Distress Eyes/N/T: EOMI, but right visual field deficit Head/Neck: neck supple, CV: RRR, No murmurs, Pulm: Clear b/l, no wheezing/rhonchi/rales Abd: soft, nontender, +BS x4 Ext: no clubbing/cyanosis/edema. left femur surgical incision covered with clean bandage Neuro: Alert, right visual field deficit, moves all extremities, Psychiatric: impaired cognition Skin: warm/dry OBJ DATA Labs CBC & Chem 7: 09/21/21 05:58 09/21/21 05:58 Labs: Abnormal Lab Results 09/21/21 09/21/21 09/21/21 05:58 05:58 05:58 WBC Lymph % (Auto) [place] # (Auto) 0.92 H Creatinine 0.5 L Glucose Calcium 8.5 L Lactate Dehydrogenase 290 H Total Protein 5.5 L Albumin 2.8 L HDL Cholesterol 37 L 09/20/21 09/20/21 12:18 12:18 WBC 11.2 H Lymph % (Auto) 15.3 L [place] # (Auto) 1.31 H Creatinine 0.5 L Glucose 128 H Calcium Lactate Dehydrogenase Total Protein Albumin HDL Cholesterol Meds: Medications Albuterol/Ipratropium (Ipratropium/Albuterol 3 Ml Ampul.Neb) 3 ml NEB ONCE PRN PRN Reason: Shortness Of Breath Last Admin: 09/20/21 21:42 Dose: 3 ml Documented by: Alendronate Sodium (Alendronate Sodium 70 Mg Tablet) 70 mg PO QWEEK [facility] Aspirin (Aspirin 81 Mg Tab.Chew) 81 mg CHEWED DAILY [facility] Bisacodyl (Bisacodyl 10 Mg Supp.Rect) 10 mg [place] Q2-3DAYS PRN PRN Reason: Constipation Clopidogrel Bisulfate (Clopidogrel 75 Mg Tablet) 75 mg PO DAILY [facility] Last Admin: 09/21/21 14:40 Dose: 75 mg Documented by: Docusate Sodium (Docusate Sodium 100 Mg Capsule) 100 mg PO BID [facility] Last Admin: 09/21/21 20:15 Dose: 100 mg Documented by: Sodium Chloride (Sodium Chloride 0.9%) 1,000 mls @ 0 mls/hr IV .Q0M [facility] Acetaminophen (Ofirmev) 1,000 mg in 100 mls @ 200 mls/hr IV Q8H [facility]; Protocol Last Infusion: 09/22/21 06:10 Dose: Infused Documented by: Labetalol HCl (Labetalol 5 Mg/Ml Ml) 0 mg IV Q2HP PRN PRN Reason: Hypertension Ondansetron HCl (Ondansetron 4 Mg/2 Ml Vial) 4 mg IV Q6HP PRN PRN Reason: Nausea And Vomiting Last Admin: 09/16/21 21:52 Dose: 4 mg Documented by: Polyethylene Glycol (Polyethylene Glycol 3350 17 Gm Packet) 17 gm PO DAILYP PRN PRN Reason: Constipation Last Admin: 09/21/21 08:28 Dose: 17 gm Documented by: Senna (Sennosides 1 Tablet) 2 tab PO HS [facility] Last Admin: 09/21/21 20:15 Dose: 2 tab Documented by: Simvastatin (Simvastatin 40 Mg Tablet) 40 mg PO QPM [facility] Last Admin: 09/21/21 20:18 Dose: 40 mg Documented by: Sodium Chloride (0.9 % Sodium Chloride 10 Ml Syringe) 10 ml IV Q8 [facility] Last Admin: 09/22/21 05:35 Dose: Not Given Documented by: Sodium Chloride (0.9 % Sodium Chloride 10 Ml Syringe) 10 ml IV Q8 [facility] Last Admin: 09/22/21 05:35 Dose: Not Given Documented by: Throat Lozenges (Benzocaine/Menthol 1 Lozenge) 1 lozenge PO PRN PRN PRN Reason: Sore Throat A/P Narrative A/P Narrative: A: #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 quickly resolved #Left femur fracture: s/p ORIF (09/17) #HTN: has been elevated #Osteoporosis: #Dementia: #h/o MS: Plan: -DAPT/Statin -permissive HTN -echo -IS -prn Oxygen -Hold Hydrochlorothiazide -Ofirmev Q8 hrs, Discontinue opioids for now, d/c flexeril for now -Delirium bundle -CM for placement -DVT ppx: on ASA per ortho Plan of Treatment: dc to snf Time Spent With Patient Time: Total time spent is greater than 50% in coordination of care (as documented) at patient's floor/unit and/or counseling patient:
--- NOTE | 2021-09-22 08:01 | Orthopedic Progress Note ---
SUBJECTIVE Subjective Patient information: Note initiated : 09/22/21 at 7:57 am Service Date, if different from initiated Date: [] Patient: Pilar Ruano 80 y/o F admitted on 09/16/21 for Fall. Chief Complaint: [breathing well and no cp but confused] Principal diagnosis: left hip fx and dementia Constitutional Vitals: Vital Signs Temp Pulse Resp BP Pulse Ox 97.0 F 73 20 216/97 93 09/22/21 04:00 09/22/21 02:01 09/22/21 06:01 09/22/21 06:01 09/22/21 06:01 Period Temp Pulse Resp BP Sys/Ramírez Pulse Ox Last 24 Hr 97.0 F-97.2 F 64-88 17-20 152-216/75-108 89-98 Intake and Output 09/21/21 09/22/21 09/22/21 21:59 05:59 13:59 Intake Total 100 100 100 Output Total 400 1150 Balance -300 -1050 100 Weight 117 lb 4 oz Intake & Output: Intake & Output 09/21/21 09/22/21 09/22/21 21:59 05:59 13:59 Intake Total 100 100 100 Output Total 400 1150 Balance -300 -1050 100 Weight 117 lb 4 oz Intake: IV 100 100 100 Output: Urine Catheter Amount 400 1150 Other: Urine Appearance Cloudy Urine Color Straw Respiratory Respiratory exam: Present normal respiratory exam Extremities Exam Extremities exam: Present normal capillary refill OBJ DATA Labs CBC & Chem 7: 09/21/21 05:58 09/21/21 05:58 Labs: Abnormal Lab Results 09/21/21 09/21/21 09/21/21 05:58 05:58 05:58 WBC Lymph % (Auto) [place] # (Auto) 0.92 H Creatinine 0.5 L Glucose Calcium 8.5 L Lactate Dehydrogenase 290 H Total Protein 5.5 L Albumin 2.8 L HDL Cholesterol 37 L 09/20/21 09/20/21 12:18 12:18 WBC 11.2 H Lymph % (Auto) 15.3 L [place] # (Auto) 1.31 H Creatinine 0.5 L Glucose 128 H Calcium Lactate Dehydrogenase Total Protein Albumin HDL Cholesterol Meds: Medications Albuterol/Ipratropium (Ipratropium/Albuterol 3 Ml Ampul.Neb) 3 ml NEB ONCE PRN PRN Reason: Shortness Of Breath Last Admin: 09/20/21 21:42 Dose: 3 ml Documented by: Alendronate Sodium (Alendronate Sodium 70 Mg Tablet) 70 mg PO QWEEK [facility] Aspirin (Aspirin 81 Mg Tab.Chew) 81 mg CHEWED DAILY [facility] Bisacodyl (Bisacodyl 10 Mg Supp.Rect) 10 mg [place] Q2-3DAYS PRN PRN Reason: Constipation Clopidogrel Bisulfate (Clopidogrel 75 Mg Tablet) 75 mg PO DAILY [facility] Last Admin: 09/21/21 14:40 Dose: 75 mg Documented by: Docusate Sodium (Docusate Sodium 100 Mg Capsule) 100 mg PO BID [facility] Last Admin: 09/21/21 20:15 Dose: 100 mg Documented by: Sodium Chloride (Sodium Chloride 0.9%) 1,000 mls @ 0 mls/hr IV .Q0M [facility] Acetaminophen (Ofirmev) 1,000 mg in 100 mls @ 200 mls/hr IV Q8H [facility]; Protocol Last Infusion: 09/22/21 06:10 Dose: Infused Documented by: Labetalol HCl (Labetalol 5 Mg/Ml Ml) 0 mg IV Q2HP PRN PRN Reason: Hypertension Ondansetron HCl (Ondansetron 4 Mg/2 Ml Vial) 4 mg IV Q6HP PRN PRN Reason: Nausea And Vomiting Last Admin: 09/16/21 21:52 Dose: 4 mg Documented by: Polyethylene Glycol (Polyethylene Glycol 3350 17 Gm Packet) 17 gm PO DAILYP PRN PRN Reason: Constipation Last Admin: 09/21/21 08:28 Dose: 17 gm Documented by: Senna (Sennosides 1 Tablet) 2 tab PO HS [facility] Last Admin: 09/21/21 20:15 Dose: 2 tab Documented by: Simvastatin (Simvastatin 40 Mg Tablet) 40 mg PO QPM [facility] Last Admin: 09/21/21 20:18 Dose: 40 mg Documented by: Sodium Chloride (0.9 % Sodium Chloride 10 Ml Syringe) 10 ml IV Q8 [facility] Last Admin: 09/22/21 05:35 Dose: Not Given Documented by: Sodium Chloride (0.9 % Sodium Chloride 10 Ml Syringe) 10 ml IV Q8 [facility] Last Admin: 09/22/21 05:35 Dose: Not Given Documented by: Throat Lozenges (Benzocaine/Menthol 1 Lozenge) 1 lozenge PO PRN PRN PRN Reason: Sore Throat A/P Assessment and plan (1) Closed fracture of neck of left femur: Status: Acute (2) Acute pain of left hip: Status: Acute Plan doing well and ready for ortho dc Narrative A/P Narrative: dc to snf Plan of Treatment: dc to snf Time Spent With Patient Time: Total time spent is greater than 50% in coordination of care (as documented) at patient's floor/unit and/or counseling patient: Total time spent with greater than 50% in coordination of care (as documented) at patient's floor/unit and/or counseling patient:: less than 15 minutes Critical Care Time: No
[2021-09-22] MEDS: DOCUSATE SODIUM 100 MG CAPSULE PO SCH ×2 (09:16→21:48)
[2021-09-22] MEDS: POLYETHYLENE GLYCOL 3350 17 GM PACKET PO PRN (09:16)
[2021-09-22] MEDS: CLOPIDOGREL 75 MG TABLET PO SCH (09:16)
[2021-09-22] MEDS: ASPIRIN 81 MG TAB.CHEW CHEWED SCH (09:16)
--- NOTE | 2021-09-22 11:19 | Discharge Summary ---
Discharge Provider Provider Patient information: Note initiated : 09/22/21 at 11:17 am Service Date, if different from initiated Date: [] Patient: Pilar Ruano 80 y/o F admitted on 09/16/21 for Fall. Chief Complaint: [] Date of admission: 09/16/21 19:39 Discharge date: 09/24/21 Primary care physician: Ismael Pardo Consults: 09/16/21 17:52 Consult to Physician [CONS] Stat Comment: Consulting Provider: Jerry Wiggins Reason For Exam: Physician to Consult 09/20/21 12:01 Consult to Physician [CONS] Stat Comment: Consulting Provider: Guero Gates Reason For Exam: Physician to Consult 09/20/21 12:14 Consult to Physician [CONS] Routine Comment: Consulting Provider: Juan M Urrutia Reason For Exam: Physician to Consult Discharge Meds Discharge Medications Home Medications alendronate 70 mg tablet (Fosamax) 70 mg PO QWEEK #12 tab 11/21/17 [Rx Confirmed 09/17/21 Last Taken Unknown] simvastatin 40 mg tablet 40 mg PO QPM #90 tab 05/25/18 [Rx Confirmed 09/17/21 Last Taken Unknown] docusate sodium 100 mg capsule (Colace) 100 mg PO QDAY #20 cap 11/27/20 [Rx Confirmed 09/17/21 Last Taken Unknown] docusate sodium 100 mg capsule 100 mg PO BID #60 cap 09/17/21 [Rx Last Taken Unknown] hydrocodone 5 mg-acetaminophen 325 mg tablet 1 - 2 tab PO Q4H PRN #30 tab 09/17/21 [Rx Last Taken Unknown] aspirin 81 mg capsule 81 mg PO QDAY #60 cap 09/22/21 [Rx Last Taken Unknown] clopidogrel 75 mg tablet 75 mg PO DAILY #28 tab 09/22/21 [Rx Last Taken Unknown] amlodipine 5 mg tablet 7.5 mg PO DAILY #60 tab 09/24/21 [Rx Last Taken Unknown] COURSE Hospital Course Hospital course: History of present illness: Pilar Ruano is a 80 year old female with a history of hypertension, dementia, osteoporosis, who suffered a fall and was found to have a left femoral neck fracture. The patient was admitted on 09/16/21 and taken for ORIF with left hip cemented hemiarthroplasty on 09/17/21. Per chart review the patient was stable until 09/20/21 when she was found to be hypoxic. A rapid response was called and hospital medicine was consulted per hospital protocol. When evaluated the patient she was tachycardic and hypotensive. She appeared confused, not the patient has dementia. 09/21 Seen this morning with close friend in the room. Is a close friend she does have some memory issues and slow to answer at times which is been progressing over the past months. She does have a history of dementia. She is on room air with good blood pressure heart rate this morning however she seemed to have a new neuro deficit on the right visual field. Patient does recall if she has had any vision problems in the past. She does have a longstanding history of multiple sclerosis. 09/22 No real change in the right visual field deficits. Permissive hypertension. Patient will need rehab as well. On dual antiplatelets and statin medication. Echo pending 09/23 Will start blood pressure medications at this point. Looking at old blood pressure trends look like she is always been a bit high, so likely untreated hypertension. She is on hydrochlorothiazide but no other blood pressure medications. Carotid ultrasound pending. Nurses report poor oral intake, and urine darker, will need IV fluid today. Continue courage oral intake. 09/24 Patient doing better today. More alert and active and communicative. Moving her right arm much better. Carotid ultrasound no significant stenosis. Echo results still pending. 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 quickly resolved #Left femur fracture: s/p ORIF (09/17) #HTN: has been elevated #Osteoporosis: #Dementia: #h/o MS: Plan: -DAPT for 30 days then ASA daily thereafter -Statin Discharge diagnosis: Acute left occipital infarct with right visual field deficits hypoxic respi Secondary discharge diagnosis: Left femur fracture status post ORIF hypertension dementia history of multiple sclerosis Time Spent with Patient Time attestation: Total time spent providing and/or coordinating discharge services: Time spent: Greater than 30 minutes EXAM Constitutional Vitals: Temp Pulse Resp BP Pulse Ox 97.6 F 80 20 177/91 95 09/22/21 08:01 09/22/21 10:07 09/22/21 06:01 09/22/21 10:01 09/22/21 10:07 Discharge Data Data Completed and Pending Labs on day of discharge: Labs from last 24 hours 09/21/21 05:58 Triglycerides 111 Cholesterol 109 LDL Cholesterol, Calc 50 Non-HDL Cholesterol 72 HDL Cholesterol 37 L Discharge Plan Patient/Caregiver Discharge Instructions Activity: ambulate only with your walker and as per physical therapy Diet: Regular Diet Activity Restrictions/Additional Instructions: Take blood pressure twice daily, keep log to bring to PCP. Prescriptions: New hydrocodone-acetaminophen 5-325 mg Tablet 1 - 2 tab PO Q4H PRN (Reason: Pain) Qty: 30 0RF docusate sodium 100 mg capsule 100 mg PO BID Qty: 60 0RF aspirin 81 mg capsule 81 mg PO QDAY Qty: 60 0RF clopidogrel 75 mg Tablet 75 mg PO DAILY Qty: 28 0RF amlodipine 5 mg Tablet 7.5 mg PO DAILY Qty: 60 0RF Continued alendronate [Fosamax] 70 mg tablet 70 mg PO QWEEK Qty: 12 3RF Rx Instructions: administer upon arising for the day with plain water >=30 min. simvastatin 40 mg tablet 40 mg PO QPM Qty: 90 3RF docusate sodium [Colace] 100 mg capsule 100 mg PO QDAY Qty: 20 0RF Discontinued hydrochlorothiazide 25 mg tablet 12.5 mg PO QDAY Qty: 45 3RF hydrocodone-acetaminophen 7.5-325 mg tablet 1 tab PO Q6H PRN (Reason: pain) Qty: 42 0RF cyclobenzaprine 5 mg tablet 5 mg PO TID 0RF Other Ambulatory Orders: Physical Therapy DC - [facility] (Routine) Location: None Selected Ordered By: Win Pringle Toilet Riser Discharge Order (ONCE) Location: None Selected Ordered By: Win Pringle Walker (ONCE) Location: None Selected Ordered By: Win Pringle Follow Up Plan Follow up with: Ismael Pardo MD [Primary Care Provider] - Patient Disposition: Xfer SNF Prognosis: Fair Rehab Potential: Fair Overall status at discharge: patient is not back to baseline Discharge Orders: Discharge Order (Routine); Ordered 09/24/21 Ordered By: Guero Gates
[2021-09-22] MEDS: SIMVASTATIN 40 MG TABLET PO SCH (21:48)
[2021-09-22] MEDS: SENNOSIDES 1 TABLET PO SCH (21:48)
[2021-09-23] MEDS: 0.9 % SODIUM CHLORIDE 10 ML SYRINGE IV SCH ×6 (05:09→20:51)
[2021-09-23] MEDS: ACETAMINOPHEN 1,000 MG/100 ML BAG IV SCH ×3 (05:10→20:51)
[2021-09-23] MEDS ORDERED: LABETALOL 5 MG/ML ML IV PRN (07:39)
--- NOTE | 2021-09-23 07:48 | Internal Med Progress Note ---
SUBJECTIVE Subjective Patient information: Note initiated : 09/23/21 at 7:46 am Service Date, if different from initiated Date: [] Patient: Pilar Ruano a 80 y/o F admitted on 09/16/21 for Fall. Chief Complaint: [] Principal diagnosis: left hip fx and dementia Interval history: History of present illness: Pilar Ruano is a 80 year old female with a history of hypertension, dementia, osteoporosis, who suffered a fall and was found to have a left femoral neck fracture. The patient was admitted on 09/16/21 and taken for ORIF with left hip cemented hemiarthroplasty on 09/17/21. Per chart review the patient was stable until 09/20/21 when she was found to be hypoxic. A rapid response was called and hospital medicine was consulted per hospital protocol. When evaluated the patient she was tachycardic and hypotensive. She appeared confused, not the patient has dementia. 09/21 Seen this morning with close friend in the room. Is a close friend she does have some memory issues and slow to answer at times which is been progressing over the past months. She does have a history of dementia. She is on room air with good blood pressure heart rate this morning however she seemed to have a new neuro deficit on the right visual field. Patient does recall if she has had any vision problems in the past. She does have a longstanding history of multiple sclerosis. 09/22 No real change in the right visual field deficits. Permissive hypertension. Patient will need rehab as well. On dual antiplatelets and statin medication. Echo pending 09/23 Will start blood pressure medications at this point. Looking at old blood pressure trends look like she is always been a bit high, so likely untreated hypertension. She is on hydrochlorothiazide but no other blood pressure medications. Carotid ultrasound pending. Nurses report poor oral intake, and urine darker, will need IV fluid today. Continue courage oral intake. Review of Systems: denies headache/fever/chills/nausea/vomiting/chest or abdominal pain/cough/dyspnea/diarrhea. Otherwise see above. Constitutional Vitals: Vital Signs Temp Pulse Resp BP Pulse Ox 97.4 F 85 20 210/99 96 09/23/21 04:03 09/23/21 06:05 09/23/21 06:05 09/23/21 06:05 09/23/21 06:05 Period Temp Pulse Resp BP Sys/Ramírez Pulse Ox Last 24 Hr 97.0 F-97.7 F 75-101 16-20 160-210/74-151 91-98 Intake and Output 09/22/21 09/23/21 09/23/21 21:59 05:59 13:59 Intake Total 580 920 Output Total 225 425 Balance 355 495 Weight 51.965 kg Intake & Output: Intake & Output 09/22/21 09/23/21 09/23/21 21:59 05:59 13:59 Intake Total 580 920 Output Total 225 425 Balance 355 495 Weight 51.965 kg Intake: IV 100 200 Oral 480 720 Output: Urine Catheter Amount 225 425 Other: Meal Dinner Percent of Meal Consumed few bites Urine Appearance Cloudy Cloudy Sediment Urine Color Straw Red Brown Urine Odor Strong Stool Size Smear Smear Stool Color Brown Brown Stool Consistency Soft Soft # Bowel Movements 1 # of times incontinent of 1 1 Bowels Exam: General: Alert, Awake, No acute Distress Eyes/N/T: EOMI, but right visual field deficit Head/Neck: neck supple, CV: RRR, No murmurs, Pulm: Clear b/l, no wheezing/rhonchi/rales Abd: soft, nontender, +BS x4 Ext: no clubbing/cyanosis/edema. left femur surgical incision covered with bandage Neuro: Alert, right visual field deficit, moves all extremities, Psychiatric: impaired cognition Skin: warm/dry OBJ DATA Labs CBC & Chem 7: 09/21/21 05:58 09/21/21 05:58 Labs: Abnormal Lab Results 09/21/21 09/21/21 09/21/21 05:58 05:58 05:58 WBC Lymph % (Auto) [place] # (Auto) 0.92 H Creatinine 0.5 L Glucose Calcium 8.5 L Lactate Dehydrogenase 290 H Total Protein 5.5 L Albumin 2.8 L HDL Cholesterol 37 L 09/20/21 09/20/21 12:18 12:18 WBC 11.2 H Lymph % (Auto) 15.3 L [place] # (Auto) 1.31 H Creatinine 0.5 L Glucose 128 H Calcium Lactate Dehydrogenase Total Protein Albumin HDL Cholesterol Meds: Medications Albuterol/Ipratropium (Ipratropium/Albuterol 3 Ml Ampul.Neb) 3 ml NEB ONCE PRN PRN Reason: Shortness Of Breath Last Admin: 09/20/21 21:42 Dose: 3 ml Documented by: Alendronate Sodium (Alendronate Sodium 70 Mg Tablet) 70 mg PO QWEEK [facility] Amlodipine Besylate (Amlodipine 5 Mg Tablet) 5 mg PO DAILY [facility] Aspirin (Aspirin 81 Mg Tab.Chew) 81 mg CHEWED DAILY [facility] Last Admin: 09/22/21 09:16 Dose: 81 mg Documented by: Bisacodyl (Bisacodyl 10 Mg Supp.Rect) 10 mg [place] Q2-3DAYS PRN PRN Reason: Constipation Clopidogrel Bisulfate (Clopidogrel 75 Mg Tablet) 75 mg PO DAILY [facility] Last Admin: 09/22/21 09:16 Dose: 75 mg Documented by: Docusate Sodium (Docusate Sodium 100 Mg Capsule) 100 mg PO BID [facility] Last Admin: 09/22/21 21:48 Dose: 100 mg Documented by: Sodium Chloride (Sodium Chloride 0.9%) 1,000 mls @ 0 mls/hr IV .Q0M [facility] Acetaminophen (Ofirmev) 1,000 mg in 100 mls @ 200 mls/hr IV Q8H [facility]; Protocol Last Infusion: 09/23/21 05:45 Dose: Infused Documented by: Labetalol HCl (Labetalol 5 Mg/Ml Ml) 0 mg IV Q2HP PRN PRN Reason: Hypertension Labetalol HCl (Labetalol 5 Mg/Ml Ml) 0 mg IV Q2HP PRN PRN Reason: Hypertension Ondansetron HCl (Ondansetron 4 Mg/2 Ml Vial) 4 mg IV Q6HP PRN PRN Reason: Nausea And Vomiting Last Admin: 09/16/21 21:52 Dose: 4 mg Documented by: Polyethylene Glycol (Polyethylene Glycol 3350 17 Gm Packet) 17 gm PO DAILYP PRN PRN Reason: Constipation Last Admin: 09/22/21 09:16 Dose: 17 gm Documented by: Senna (Sennosides 1 Tablet) 2 tab PO HS [facility] Last Admin: 09/22/21 21:48 Dose: 2 tab Documented by: Simvastatin (Simvastatin 40 Mg Tablet) 40 mg PO QPM [facility] Last Admin: 09/22/21 21:48 Dose: 40 mg Documented by: Sodium Chloride (0.9 % Sodium Chloride 10 Ml Syringe) 10 ml IV Q8 [facility] Last Admin: 09/23/21 05:09 Dose: Not Given Documented by: Sodium Chloride (0.9 % Sodium Chloride 10 Ml Syringe) 10 ml IV Q8 [facility] Last Admin: 09/23/21 05:09 Dose: 10 ml Documented by: Throat Lozenges (Benzocaine/Menthol 1 Lozenge) 1 lozenge PO PRN PRN PRN Reason: Sore Throat A/P Narrative A/P Narrative: A: #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 quickly resolved #Left femur fracture: s/p ORIF (09/17) #HTN: only on HCTZ at home. elevated and also elevated per old trends #Osteoporosis: #Dementia: #h/o MS: Plan: -DAPT/Statin -start norvasc, titrate BP meds -echo and carotid u/s -IS -prn Oxygen -Hold Hydrochlorothiazide -Ofirmev Q8 hrs, Discontinued opioids for now, d/c flexeril for now -Delirium bundle -CM for placement -DVT ppx: on ASA per ortho Time Spent With Patient Time: Total time spent is greater than 50% in coordination of care (as documented) at patient's floor/unit and/or counseling patient: Total time spent with greater than 50% in coordination of care (as documented) at patient's floor/unit and/or counseling patient:: 25 - 35 minutes
[2021-09-23] MEDS ORDERED: amLODIPine 5 MG TABLET PO SCH (09:00)
[2021-09-23] MEDS: DOCUSATE SODIUM 100 MG CAPSULE PO SCH ×2 (09:09→20:50)
[2021-09-23] MEDS: CLOPIDOGREL 75 MG TABLET PO SCH (09:09)
[2021-09-23] MEDS: ASPIRIN 81 MG TAB.CHEW CHEWED SCH (09:09)
--- NOTE | 2021-09-23 09:11 | Ultrasound Report ---
INDICATION: stroke COMPARISON: None. TECHNIQUE: Carotid arteries were imaged in sagittal and transverse planes using 5 mHz linear probe: Doppler, color, and 2D. FINDINGS: No significant atherosclerotic plaque in either common carotid artery or proximal internal carotid artery. No flow disturbance. No hemodynamically significant stenosis Maximum Systolic Flow Velocity: - Right common carotid artery: 58 cm/sec - Right internal carotid artery: 42 cm/sec - Left common carotid artery: 53 cm/sec - Left internal carotid artery: 41 cm/sec Vertebral arteries are antegrade patent bilaterally IMPRESSION: Negative carotid ultrasound. No significant atherosclerotic plaque. No hemodynamically significant stenosis Interpreted and Authenticated by: Steven Torres 09/23/21
[2021-09-23] MEDS ORDERED: 0.9 % SODIUM CHLORIDE 1,000 ML IV ONE (09:50)
[2021-09-23] MEDS: SENNOSIDES 1 TABLET PO SCH (20:50)
[2021-09-23] MEDS: SIMVASTATIN 40 MG TABLET PO SCH (20:50)
[2021-09-24] MEDS: 0.9 % SODIUM CHLORIDE 10 ML SYRINGE IV SCH ×2 (04:56)
[2021-09-24] MEDS: ACETAMINOPHEN 1,000 MG/100 ML BAG IV SCH (04:58)
[2021-09-24] MEDS ORDERED: LABETALOL 5 MG/ML ML IV PRN (07:42)
[2021-09-24] MEDS: ASPIRIN 81 MG TAB.CHEW CHEWED SCH (08:32)
[2021-09-24] MEDS: CLOPIDOGREL 75 MG TABLET PO SCH (08:32)
[2021-09-24] MEDS: DOCUSATE SODIUM 100 MG CAPSULE PO SCH (08:56)
[2021-09-24] MEDS ORDERED: amLODIPine 5 MG TABLET PO SCH (09:00)
[2021-09-24] MEDS ORDERED: ALENDRONATE SODIUM 70 MG TABLET PO SCH (09:00)
--- NOTE | 2021-11-16 15:18 | Operative Note ---
DATE OF OPERATION: 09/17/2021 PREOPERATIVE DIAGNOSIS: Left hip femoral neck fracture. POSTOPERATIVE DIAGNOSIS: Left hip femoral neck fracture. PROCEDURE: Left hip cemented hemiarthroplasty. SURGEON: Jerry Wiggins M.D. CAFETERIA MANAGER: Win Pringle PA-C. The PA's assistance was required for the safe and efficient completion of the entire case. This provider's expertise and technical skill were required throughout the case. The PA assisted with preoperative coordination, intraoperative retraction, wound closure, dressing and splint application, as well as postoperative documentation and care coordination. ANESTHESIA: General endotracheal anesthesia. ESTIMATED BLOOD LOSS: 84 mL. SPECIMENS REMOVED: None. CONDITION: Stable. DISPOSITION: To PACU. DESCRIPTION OF PROCEDURE: The patient was brought to the operating room, put to sleep with general LMA anesthesia. Once asleep, the patient had the left leg sterilely prepped and draped in the usual sterile fashion, turned into right lateral position with the [place] positioner. Timeout was performed confirming this as the operative site, confirming preoperative antibiotics and tranexamic acid. We made a superior approach to the hip. We went through the fascial layer and the IT band. This was retracted with a Charnley retractor. We exposed the posterior capsule, which was released with the superior capsule. The hip was then dislocated with the ball and the fractured fragment using a Zurdo to assist with dislocation. We made our neck cut at 15 mm above the lesser trochanter, and I was able to then remove the bony fragments. We then cleaned out the acetabulum, keeping the labrum intact and then we reamed up on the canal. We placed a trial component. This seemed to fit very nicely. The femoral head measured her normal anatomy with neutral neck length. This seemed to give normal leg length, offset, and alignment and very stable. We then cemented into place the femoral stem. A Jennifer implant was placed and a unipolar hemiarthroplasty was then positioned on the ball. This was reduced into the joint. There was no complication. We repaired the capsule with #1 Ethibond, closed the skin with Stratafix on the fascial layer and the skin was closed with Stratafix and adhesive closure. The patient tolerated this well. There were no complications. Blood loss was about 84 mL. No blood products were given. RELL:doyle Job ID: [id number] Doc ID: [id number] Jerry Wiggins MD
== END 2021-09-24 13:00 | DRG 521 ==
LOC: ED 16:50 → MEDSUR 19:39 → ICU 09-20 12:41
PROVIDERS: ADMIT Orthopaedic Surgery; ATTEND Orthopaedic Surgery